=== PATIENT | female | born 1950 | race Caucasian/White ===

== ENCOUNTER 2017-05-13 09:09 | Outpatient (CLI) | payer MEDICARE, BC ==
--- NOTE | 2017-05-13 11:33 | RAD ---
CHEST PA AND LATERAL: History: 66-year-old female with dyspnea. Comparison: None. FINDINGS: Biapical pleural thickening. Surgical clips overlie the anterior chest wall. Heart size is within no rmal limits. Mild increased linear and interstitial markings. S-shaped thoracolumbar scoliosis. IMPRESSION: No acute intrathoracic disease. Biapical pleural thickening. Minimal chronic lung changes. POS: [facility]
== END 2017-05-13 09:10 | disposition home or self-care (01) ==
LOC: RAD 09:09
PROVIDERS: ATTEND Internal Medicine Critical Care Medicine
DX: R06.00 Dyspnea, unspecified (principal); J92.9 Pleural plaque without asbestos
CPT/HCPCS: 71020

== ENCOUNTER 2017-11-06 09:07 | Outpatient (CLI) | payer MEDICARE, BC | END 2017-11-06 09:08 | disposition home or self-care (01) | LOC: CP 09:07 | PROVIDERS: ATTEND Internal Medicine Critical Care Medicine | DX: R06.09 Other forms of dyspnea (principal) | CPT/HCPCS: 36415; 84165; 94060; 94727; 94729 ==

== ENCOUNTER 2018-02-03 09:41 | Outpatient (CLI) | payer MEDICARE, BC | END 2018-02-03 09:42 | disposition home or self-care (01) | LOC: BICULT 09:41 | PROVIDERS: ATTEND Internal Medicine Hematology & Oncology | DX: C73 Malignant neoplasm of thyroid gland (principal); Z85.3 Personal history of malignant neoplasm of breast; Z80.3 Family history of malignant neoplasm of breast | CPT/HCPCS: 71046; 76536; 77066; G0279 ==

== ENCOUNTER 2019-02-09 08:45 | Outpatient (CLI) | payer MEDICARE, BC ==
--- NOTE | 2019-02-09 09:18 | ULT ---
THYROID ULTRASOUND: CLINICAL HISTORY: History of thyroid malignancy and prior thyroidectomy FINDINGS: There is no thyroid tissue identified. No significant soft tissue abnormality is identified at the le bassem of the thyroid bed. Nodules: IMPRESSION: Status post thyroidectomy, no significant abnormality visualized by sonographic evaluation of the thy roid bed.
--- NOTE | 2019-02-09 10:14 | RAD ---
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 COMPARISON: None. FINDINGS: Two views of the chest show normal sized cardiomediastinal silhouette. There is no evidence of consol idation, mass, or pleural effusion. The bones are unremarkable. IMPRESSION: No evidence of acute cardiopulmonary disease. POS: [facility]
--- NOTE | 2019-02-09 11:05 | MMO ---
Bilateral MAMMO Bilat Screen [facility]. CLINICAL HISTORY: Patient is 68 years old and is seen for screening. The patient has the following family history of breast cancer: maternal aunt, malignant (generic) and cousin female, malignant (generic). The patient has a history of other cancer in 2011; thyroid cancer and Skin cancer. The patient has a history of right Excisional Biopsy in 2011 - benign - MAMMARY DESMOID TUMOR REMOVED, Explantation, Implants and mastopexy. VIEWS: The views performed were: bilateral craniocaudal with tomosynthesis and bilateral mediolateral oblique with tomosynthesis. FILMS COMPARED: The present examination has been compared to prior imaging studies performed at [facility] on 02/03/2018, and at [facility] on 01/18/2016 and 01/23/2017. MAMMOGRAM FINDINGS: There are scattered fibroglandular densities. Benign calcifications are noted bilaterally. Bilateral biopsy clips. There are no suspicious masses, suspicious calcifications, or new areas of architectural distortion. IMPRESSION: THERE IS NO MAMMOGRAPHIC EVIDENCE OF MALIGNANCY. A ROUTINE FOLLOW-UP MAMMOGRAM IN 1 YEAR IS RECOMMENDED. THE RESULTS OF THIS EXAM WERE SENT TO THE PATIENT. ACR BI-RADS Category 2 - Benign finding MAMMOGRAPHY NOTE: 1. A negative mammogram report should not delay a biopsy if a dominant of clinically suspicious mass is present. 2. Approximately 10% to 15% of breast cancers are not detected by mammography. 3. Adenosis and dense breasts may obscure an underlying neoplasm. Reported by: HEATHER PLAZA MD Electonically Signed: [id number]
== END 2019-02-09 08:46 | disposition home or self-care (01) ==
LOC: BICMAMMO 08:45
PROVIDERS: ATTEND Internal Medicine Hematology & Oncology
DX: Z12.31 Encounter for screening mammogram for malignant neoplasm of breast (principal); C73 Malignant neoplasm of thyroid gland; E89.0 Postprocedural hypothyroidism; Z80.3 Family history of malignant neoplasm of breast; Z85.850 Personal history of malignant neoplasm of thyroid; Z85.89 Personal history of malignant neoplasm of other organs and systems; Z85.828 Personal history of other malignant neoplasm of skin; Z98.82 Breast implant status; Z91.89 Other specified personal risk factors, not elsewhere classified
CPT/HCPCS: 71046; 76536; 77063; 77067

== ENCOUNTER 2020-04-25 08:57 | Outpatient (CLI) | payer MEDICARE ==
--- NOTE | 2020-04-25 09:25 | ULT ---
Thyroid sonogram HISTORY: Thyroid cancer. Prior thyroidectomy. FINDINGS: Sonographic evaluation of the thyroid bed was performed. No thyroid tissue, mass, or adenop athy evident. IMPRESSION : Surgical absence of the thyroid gland. No abnormalities are demonstrated.
--- NOTE | 2020-04-25 10:37 | MMO ---
Bilateral MAMMO Bilat Diag [facility]. CLINICAL HISTORY: Patient is 69 years old and is seen for diagnostic exam. The patient has the following family history of breast cancer: maternal aunt, malignant (generic) and cousin female, malignant (generic). The patient has a history of other cancer in 2010; thyroid cancer and Skin cancer. The patient has a history of right Excisional Biopsy in 2010 - benign - MAMMARY DESMOID TUMOR REMOVED, right OTHER in 2010 - [id number] 4 reconstruction surgeries, Implants, mastopexy and Explantation. VIEWS: The views performed were: bilateral craniocaudal with tomosynthesis; bilateral mediolateral oblique with tomosynthesis; and bilateral mediolateral with tomosynthesis. FILMS COMPARED: The present examination has been compared to prior imaging studies performed at [facility] on 02/03/2018 and 02/09/2019, and at [facility] on 01/18/2016 and 01/23/2017. This study has been interpreted with the assistance of computer-aided detection. MAMMOGRAM FINDINGS: There are scattered fibroglandular densities. There are no suspicious masses, suspicious calcifications, or new areas of architectural distortion. IMPRESSION: THERE IS NO MAMMOGRAPHIC EVIDENCE OF MALIGNANCY. A ROUTINE FOLLOW-UP MAMMOGRAM IN 1 YEAR IS RECOMMENDED. THE RESULTS OF THIS EXAM WERE SENT TO THE PATIENT. ACR BI-RADS Category 1 - Negative MAMMOGRAPHY NOTE: 1. A negative mammogram report should not delay a biopsy if a dominant of clinically suspicious mass is present. 2. Approximately 10% to 15% of breast cancers are not detected by mammography. 3. Adenosis and dense breasts may obscure an underlying neoplasm. Reported by: Magen CONTRERAS Electonically Signed: [id number]
== END 2020-04-25 08:58 | disposition home or self-care (01) ==
LOC: BICULT 08:57
PROVIDERS: ATTEND Internal Medicine Hematology & Oncology
DX: C73 Malignant neoplasm of thyroid gland (principal); Z85.3 Personal history of malignant neoplasm of breast; E89.0 Postprocedural hypothyroidism
CPT/HCPCS: 76536; 77066; G0279

== ENCOUNTER 2020-05-16 09:25 | Outpatient (CLI) | payer MEDICARE ==
[2020-05-16] MEDS ORDERED: Iopamidol 370 76% 100 ML VIAL ONE (10:25)
--- NOTE | 2020-05-16 14:13 | CT ---
CT ABDOMEN AND PELVIS PERFORMED WITH CONTRAST ENHANCEMENT: 05/16/20 HISTORY: Patient has a history of previous surgical hernia repair by history related to history of breast urbano nstruction. Evaluation for new hernia. The lung bases are clear. The liver, spleen, and pancreas regions appear unremarkable. The gallbladder appears to have been rem dottie. Right and left adrenal glands and right and left kidneys are normal in size. Some cortical thinning i nvolving the right kidney. Mildly prominent extrarenal pelvis on the left. No significant periaortic or mesenteric adenopathy. The rectus abdominis musculature is generally atrophied but no hernia is ap preciated. No pelvic lymphadenopathy or mass. A left hip prosthesis is present. IMPRESSION: Fairly pronounced atrophy to the abdominal wall musculature, specifically the rectus abdominis muscle s. No definitive signs of a recurrent hernia. The fascia becomes very thin in the midline in the para umbilical region. POS: [facility]
== END 2020-05-16 09:26 | disposition home or self-care (01) ==
LOC: BICCT 09:25
PROVIDERS: ATTEND Surgery
DX: K43.2 Incisional hernia without obstruction or gangrene (principal)
CPT/HCPCS: 74177; 82565; Q9967

== ENCOUNTER 2021-05-01 08:22 | Outpatient (CLI) | payer MEDICARE | END 2021-05-01 08:23 | disposition home or self-care (01) | LOC: BICULT 08:22 | PROVIDERS: ATTEND Internal Medicine Hematology & Oncology | DX: C73 Malignant neoplasm of thyroid gland (principal); C50.919 Malignant neoplasm of unspecified site of unspecified female breast; Z90.89 Acquired absence of other organs | CPT/HCPCS: 76536; 77066; G0279 ==

== ENCOUNTER 2022-03-12 08:45 | Outpatient (CLI) | payer MEDICARE | END 2022-03-12 08:46 | disposition home or self-care (01) | LOC: BICCT 08:45 | PROVIDERS: ATTEND Physician Assistant Medical | DX: R10.84 Generalized abdominal pain (principal); K59.00 Constipation, unspecified; R14.0 Abdominal distension (gaseous); N28.89 Other specified disorders of kidney and ureter; K44.9 Diaphragmatic hernia without obstruction or gangrene | CPT/HCPCS: 74177; 82565 ==

== ENCOUNTER 2022-03-28 13:54 | Outpatient (CLI) | payer MEDICARE | END 2022-03-28 13:55 | disposition home or self-care (01) | LOC: BICCT 13:54 | PROVIDERS: ATTEND Physician Assistant Medical | DX: N28.1 Cyst of kidney, acquired (principal) | CPT/HCPCS: 74170 ==

== ENCOUNTER 2022-04-18 14:45 | Outpatient (CLI) | payer MEDICARE | END 2022-04-18 14:46 | disposition home or self-care (01) | LOC: CTENTCT 14:45 | PROVIDERS: ATTEND Otolaryngology Plastic Surgery within the Head & Neck | DX: J32.8 Other chronic sinusitis (principal) | CPT/HCPCS: 70486 ==

== ENCOUNTER 2022-05-01 09:39 | Day surgery (SDC) | payer MEDICARE ==
[2022-04-29 12:19] VITALS: BMI 27.3
[2022-05-01] MEDS ORDERED: Oxymetazoline HCl 0.05% (30 ML BOT) ONE ×2 (10:52→11:53)
[2022-05-01 11:23] LABS: Hemoglobin 14.1 g/dL (12.0-16.0)
[2022-05-01 11:35] LABS: Anion Gap 12 mmol/L (10-20); BUN (Urea Nitrogen) 12 mg/dL (9.8-20.1); Calc. Creatinine Clearance 72 mL/min (70-130); Carbon Dioxide 25 mmol/L (23-31); Chloride 105 mmol/L (98-107); Estimated GFR 68; Glucose 81 mg/dL (83-110); Potassium 3.9 mmol/L (3.5-5.1); Sodium 138 mmol/L (136-145)
[2022-05-01] MEDS ORDERED: Bacitracin Zinc Ointment 30 gm TUBE ONE (11:53)
[2022-05-01] MEDS ORDERED: Lidocaine 1% (PF) 30 ML VIAL ONE (11:53)
[2022-05-01] MEDS ORDERED: EPINEPHrine 1 MG/ML AMP ONE (11:53)
[2022-05-01] MEDS ORDERED: fentaNYL Citrate/PF 100 MCG/2 ML SYRINGE ONE ×2 (11:59→13:22)
[2022-05-01] MEDS ORDERED: Dexamethasone 20 MG/5 ML VIAL ONE (12:00)
[2022-05-01] MEDS ORDERED: PROPOFOL 200 MG/20 ML VIAL ONE (12:00)
[2022-05-01] MEDS ORDERED: Rocuronium Bromide 10 MG/ML (10ML VIAL) ONE (12:00)
[2022-05-01] MEDS ORDERED: Ondansetron PF 4 MG/2 ML Vial ONE (12:00)
[2022-05-01] MEDS ORDERED: SUGAMMADEX SODIUM 200 MG/2 ML VIAL ONE (12:37)
[2022-05-01] MEDS ORDERED: Promethazine HCl 25 MG/ML VIAL ONE (13:40)
[2022-05-01] MEDS ORDERED: HYDROcodone/Acetaminophen 5/325 mg Tablet ONE (14:24)
== END 2022-05-01 15:32 | disposition home or self-care (01) ==
LOC: SDC 09:39
PROVIDERS: ATTEND Otolaryngology Plastic Surgery within the Head & Neck
PROC: 8E09XBZ Computer Assisted Procedure of Head and Neck Region (ICD-10-PCS; principal; 2022-05-01)
PROC: 09BR8ZZ Excision of Left Maxillary Sinus, Via Natural or Artificial Opening Endoscopic (ICD-10-PCS; 2022-05-01)
PROC: 099Q8ZZ Drainage of Right Maxillary Sinus, Via Natural or Artificial Opening Endoscopic (ICD-10-PCS; 2022-05-01)
PROC: 099X8ZZ Drainage of Left Sphenoid Sinus, Via Natural or Artificial Opening Endoscopic (ICD-10-PCS; 2022-05-01)
PROC: 099W8ZZ Drainage of Right Sphenoid Sinus, Via Natural or Artificial Opening Endoscopic (ICD-10-PCS; 2022-05-01)
PROC: 09TV8ZZ Resection of Left Ethmoid Sinus, Via Natural or Artificial Opening Endoscopic (ICD-10-PCS; 2022-05-01)
PROC: 09TU8ZZ Resection of Right Ethmoid Sinus, Via Natural or Artificial Opening Endoscopic (ICD-10-PCS; 2022-05-01)
PROC: 09TL8ZZ Resection of Nasal Turbinate, Via Natural or Artificial Opening Endoscopic (ICD-10-PCS; 2022-05-01)
DX: J32.9 Chronic sinusitis, unspecified (principal); J30.89 Other allergic rhinitis; B48.8 Other specified mycoses; J33.9 Nasal polyp, unspecified; J34.3 Hypertrophy of nasal turbinates; J34.89 Other specified disorders of nose and nasal sinuses; J34.2 Deviated nasal septum; E89.0 Postprocedural hypothyroidism; Z79.890 Hormone replacement therapy; Z79.899 Other long term (current) drug therapy; Z88.2 Allergy status to sulfonamides; Z88.5 Allergy status to narcotic agent; Z88.8 Allergy status to other drugs, medicaments and biological substances
CPT/HCPCS: 80048; 85014; 85018; 87070; 87077; 87186; 87205; 93005; 93010; J0171; J1100; J2001; J2405; J2550; J2704

== ENCOUNTER 2023-05-22 08:47 | Outpatient (CLI) | payer MEDICARE | END 2023-05-22 08:48 | disposition home or self-care (01) | LOC: BICMAMMO 08:47 | PROVIDERS: ATTEND Internal Medicine Hematology & Oncology | DX: Z08 Encounter for follow-up examination after completed treatment for malignant neoplasm (principal); C73 Malignant neoplasm of thyroid gland; Z85.3 Personal history of malignant neoplasm of breast | CPT/HCPCS: 76536; 77066; G0279 ==

== ENCOUNTER 2023-08-14 10:37 | Outpatient (CLI) | payer MEDICARE | END 2023-08-14 10:38 | disposition home or self-care (01) | LOC: BICMAMMO 10:37 | PROVIDERS: ATTEND Internal Medicine Rheumatology | DX: M81.0 Age-related osteoporosis without current pathological fracture (principal); M47.814 Spondylosis without myelopathy or radiculopathy, thoracic region; M41.9 Scoliosis, unspecified; M85.88 Other specified disorders of bone density and structure, other site | CPT/HCPCS: 72070; 77080 ==

== ENCOUNTER 2024-05-27 09:43 | Outpatient (CLI) | payer MEDICARE | END 2024-05-27 09:44 | disposition home or self-care (01) | LOC: BICMAMMO 09:43 | PROVIDERS: ATTEND Internal Medicine Hematology & Oncology | DX: Z12.31 Encounter for screening mammogram for malignant neoplasm of breast (principal); Z80.3 Family history of malignant neoplasm of breast; Z91.89 Other specified personal risk factors, not elsewhere classified; Z85.828 Personal history of other malignant neoplasm of skin; Z85.850 Personal history of malignant neoplasm of thyroid | CPT/HCPCS: 77063; 77067 ==

== ENCOUNTER 2025-06-07 09:01 | Outpatient (CLI) | payer MEDICARE | END 2025-06-07 09:02 | disposition home or self-care (01) | LOC: BICMAMMO 09:01 | PROVIDERS: ATTEND Internal Medicine Hematology & Oncology | DX: Z12.31 Encounter for screening mammogram for malignant neoplasm of breast (principal); Z80.3 Family history of malignant neoplasm of breast; Z85.89 Personal history of malignant neoplasm of other organs and systems; Z85.820 Personal history of malignant melanoma of skin; Z85.850 Personal history of malignant neoplasm of thyroid; Z91.89 Other specified personal risk factors, not elsewhere classified; Z98.82 Breast implant status | CPT/HCPCS: 77063; 77067 ==